=== PATIENT | male | born 1985 | race American Indian/Alaskan Native ===

== ENCOUNTER 2021-08-29 01:28 | Emergency (ER) | payer SELFPAY ==
[2021-08-29 01:35] VITALS: BP 136/95
[2021-08-29 02:23] LABS: Basophils # (Auto) 0.1 K/mm3 (0.0-0.1); Eosinophils # (Auto) 0.1 K/mm3 (0.0-0.4); Eosinophils % (Auto) 1.1 % (0.0-4.3); Hematocrit 48.6 % (35.5-45.6); Hemoglobin 16.1 gm/dl (11.8-15.2); Lymphocytes # (Auto) 1.8 K/mm3 (1.2-5.4); Mean Corpuscular HGB Conc 33 % (32-34); Mean Corpuscular Volume 94 fl (84-94); Monocytes # (Auto) 0.5 K/mm3 (0.0-0.8); Monocytes % (Auto) 11.3 % (0.0-7.3); Platelet Count 170 K/mm3 (140-440); Red Blood Count 5.19 M/mm3 (3.65-5.03); Red Cell Distribution Width 14.6 % (13.2-15.2)
[2021-08-29] MEDS ORDERED: MORPHINE 4 MG/1 ML INJ IV ONE ×2 (02:43→05:08)
[2021-08-29] MEDS ORDERED: SODIUM CHLORIDE 0.9% 1000 ML 1,000 ML IV ONE ×2 (02:43→05:08)
[2021-08-29] MEDS ORDERED: ONDANSETRON 4 MG/2 ML INJ IV ONE ×2 (02:43→05:08)
[2021-08-29] MEDS ORDERED: TAMSULOSIN 0.4 MG CAP PO ONE (02:43)
[2021-08-29 03:52] LABS: Alanine Aminotransferase 50 units/L (7-56); Albumin 4.1 g/dL (3.9-5); BUN/Creatinine Ratio 7; Blood Urea Nitrogen 8 mg/dL (9-20); Calcium 9.3 mg/dL (8.4-10.2); Hemolysis Index 50
[2021-08-29 04:40] LABS: Bilirubin,Urine NEG (Negative); Blood,Urine MOD (Negative); Color,Urine Red (Yellow); Mucus,Urine FEW /HPF; Urobilinogen,Urine < 2.0 mg/dL (<2.0)
[2021-08-29 04:41] LABS: RBC,Urine > 182.0 /HPF (0.0-6.0); WBC,Urine < 1.0 /HPF (0.0-6.0)
--- NOTE | 2021-08-29 05:09 | Cat Scan Report ---
CT ABDOMEN AND PELVIS WITHOUT CONTRAST INDICATION / CLINICAL INFORMATION: Left flank pain, hematuria. TECHNIQUE: Axial CT images were obtained through the abdomen and pelvis without IV contrast. All CT scans at this location are performed using CT dose reduction for ALARA by means of automated exposure control. COMPARISON: None available. FINDINGS: LOWER CHEST: No acute abnormality. LIVER: Hepatic steatosis with hepatomegaly. GALLBLADDER/BILIARY TREE: No significant abnormality PANCREAS: No significant abnormality SPLEEN: No significant abnormality ADRENALS: No significant abnormality KIDNEYS / URETER: No significant abnormality. No urolithiasis or hydronephrosis. URINARY BLADDER: No significant abnormality REPRODUCTIVE ORGANS: No significant abnormality STOMACH / BOWEL: Small bowel and colon demonstrate no evidence of mechanical obstruction or inflammat ion. A few scattered colonic diverticula are noted without evidence of diverticulitis. There is a 2.2 cm thick-walled fat density region along the transverse colon omentum (series 2 image 143), likely r eflecting localized omental infarct. Appendix is normal. LYMPH NODES: No significant adenopathy. VASCULATURE: No significant abnormality. OTHER: No free air, free fluid, or focal fluid collection is identified. SKELETAL SYSTEM: No acute osseous findings. IMPRESSION: 1. 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 2. Otherwise, no evidence of acute abnormality in the abdomen or pelvis. No urolithiasis or hydroneph rosis. 3. Other incidental findings as above. Signer Name: Van Merritt MD Signed: 08/29/2021 5:05 AM Workstation Name: [id number]
[2021-08-29] MEDS ORDERED: INSULIN REGULAR, HUMAN 100 UNITS/1 ML IV ONE (06:00)
--- NOTE | 2021-08-29 07:13 | Emergency Department Report ---
ED Abdominal Pain HPI - General Chief Complaint: Abdominal Pain Stated Complaint: LEFT SIDE FLANK PAIN Source: patient Mode of arrival: Ambulatory Limitations: No Limitations - History of Present Illness Initial Comments: Patient is a 36-year-old -[place] male with a history of morbid obesity, [id number] diabetes and chronic kidney stones who presents to the ED with acute onset persistent severe left flank pain that radiates to the left lower quadrant with nausea and vomiting and hematuria for the last 6 hours. Patient states that he is visiting [facility] for work from [place]. Patient states that the pain is similar to what he experienced whenever he had kidney stones. Patient denies fever, chills, dizziness, syncope, diarrhea, low back pain, chest pain or shortness of breath, testicular pain, dysuria or penile discharge. MD Complaint: abdominal pain, flank pain (Left flank pain, nausea and vomiting), other (Hematuria) -: Sudden, hour(s) (6) Location: LLQ, L flank Radiation: LLQ, L flank Migration to: LLQ, L flank Severity: severe Severity scale (0 -10): 8 Quality: stabbing, sharp Consistency: constant Improves With: nothing Worsens With: nothing Context: other (Possible kidney stone) Associated Symptoms: nausea, vomiting - Related Data Allergies Allergy/AdvReac Type Severity Reaction Status Date / Time ketorolac [From Toradol] Allergy Itching Verified 08/29/21 01:32 ED Review of Systems ROS: Stated complaint: LEFT SIDE FLANK PAIN Other details as noted in HPI Constitutional: denies: chills, fever Eyes: denies: eye pain, eye discharge, vision change ENT: denies: ear pain, throat pain Respiratory: denies: cough, shortness of breath, wheezing Cardiovascular: denies: chest pain, palpitations Endocrine: no symptoms reported Gastrointestinal: abdominal pain (Left flank pain), nausea, vomiting. denies: diarrhea Genitourinary: hematuria. denies: urgency, dysuria Musculoskeletal: denies: back pain, joint swelling, arthralgia Skin: denies: rash, lesions Neurological: denies: headache, weakness, paresthesias Psychiatric: denies: anxiety, depression Hematological/Lymphatic: denies: easy bleeding, easy bruising ED Past Medical Hx - Past Medical History Previous Medical History?: Yes Additional medical history: Kidney stones - Surgical History Past Surgical History?: Yes Additional Surgical History: Tonsillectomy ED Physical Exam - General Limitations: No Limitations General appearance: alert, in no apparent distress - Head Head exam: Present: atraumatic, normocephalic, normal inspection - Eye Eye exam: Present: normal appearance, PERRL, EOMI Pupils: Present: normal accommodation - ENT ENT exam: Present: normal exam, normal orophraynx, mucous membranes moist, TM's normal bilaterally, normal external ear exam - Neck Neck exam: Present: normal inspection, full ROM - Respiratory Respiratory exam: Present: normal lung sounds bilaterally. Absent: respiratory distress, wheezes, rales, rhonchi, stridor, chest wall tenderness, decreased breath sounds, prolonged expiratory - Cardiovascular Cardiovascular Exam: Present: regular rate, normal rhythm, normal heart sounds. Absent: systolic murmur, diastolic murmur, rubs, gallop - GI/Abdominal GI/Abdominal exam: Present: soft, tenderness (Palpable left flank and left lower quadrant tenderness), normal bowel sounds. Absent: guarding, rebound - Extremities Exam Extremities exam: Present: normal inspection, full ROM, normal capillary refill - Back Exam Back exam: Present: normal inspection, full ROM. Absent: tenderness, CVA tenderness (R), CVA tenderness (L), muscle spasm, paraspinal tenderness, liberty tebral tenderness - Neurological Exam Neurological exam: Present: alert, oriented X3, CN II-XII intact, normal gait, reflexes normal - Psychiatric Psychiatric exam: Present: normal affect, normal mood - Skin Skin exam: Present: warm, dry, intact, normal color. Absent: rash ED Course Vital Signs 08/29/21 01:32 Temperature 98.3 F Pulse Rate 98 H Respiratory 18 Rate Blood Pressure 136/95 [Right] O2 Sat by Pulse 98 Oximetry ED Medical Decision Making - Lab Data Result diagrams: 08/29/21 02:03 08/29/21 02:03 - Radiology Data [facility] [address] [place] [address] Cat Scan Report Signed Patient: JESS STOKES MR# : [id number] : 1985 Acct:[id number] Age/Sex: 36 / M ADM Date: 08/29/21 Loc: ED Attending Dr: Ordering Physician: JORGE L FRAZIER Date of Service: 08/29/21 Procedure(s): CT abdomen pelvis wo con Accession Number(s): [id number] cc: JORGE L FRAZIER CT ABDOMEN AND PELVIS WITHOUT CONTRAST INDICATION / CLINICAL INFORMATION: Left flank pain, hematuria. TECHNIQUE: Axial CT images were obtained through the abdomen and pelvis without IV contrast. All CT scans at this location are performed using CT dose reduction for ALARA by means of automated exposure control. COMPARISON: None available. FINDINGS: LOWER CHEST: No acute abnormality. LIVER: Hepatic steatosis with hepatomegaly. GALLBLADDER/BILIARY TREE: No significant abnormality PANCREAS: No significant abnormality SPLEEN: No significant abnormality ADRENALS: No significant abnormality KIDNEYS / URETER: No significant abnormality. No urolithiasis or hydronephrosis. URINARY BLADDER: No significant abnormality REPRODUCTIVE ORGANS: No significant abnormality STOMACH / BOWEL: Small bowel and colon demonstrate no evidence of mechanical obstruction or inflammation. A few scattered colonic diverticula are noted without evidence of diverticulitis. The re is a 2.2 cm thick-walled fat density region along the transverse colon omentum (series 2 image 143), likely reflecting localized omental infarct. Appendix is normal. LYMPH NODES: No significant adenopathy. VASCULATURE: No significant abnormality. OTHER: No free air, free fluid, or focal fluid collection is identified. SKELETAL SYSTEM: No acute osseous findings. IMPRESSION: 1. 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 2. Otherwise, no evidence of acute abnormality in the abdomen or pelvis. No urolithiasis or hydronephrosis. 3. Other incidental findings as above. Signer Name: Aaron Merritt MD Signed: 08/29/2021 5:05 AM Workstation Name: [id number] Transcribed By: ARISTEO Dictated By: AARON MERRITT MD Electronically Authenticated By: AARON MERRITT MD Signed Date/Time: 08/29/21504 DD/ 0 TD/TT: - Medical Decision Making This is a 36-year-old -[place] male with a history of morbid obesity, [id number]-[id number] diabetes and chronic kidney stones who presents to the ED with acute onset persistent severe left flank pain that radiates to the left lower quadrant with nausea and vomiting and hematuria for the last 6 hours. Patient states that he is visiting [facility] for work from [place]. Patient states that the pain is similar to what he experienced whenever he had kidney stones. In the ED, patient is alert and oriented x3 and is not in any distress but appears to be in pain. Patient was treated for pain in the ED. Patient was treated with normal saline 2 L IV bolus x1. Lab test results were reviewed and showed acute hyponatremia 129 mmol/L, also hyperglycemia of 463 mg/dL. Urinalysis showed gross hematuria. 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 Otherwise, no evidence of acute abnormality in the abdomen or pelvis. No urolithiasis or hydronephrosis. These findings were discussed with the ED attending physician Dr. Indy Sanches who advised that the findings of suspected small omental infarct is not clinically significant and relevant at this time. The patient had presented to the ED with left flank pain on arrival. Patient was also treated with insulin as well as 2 L of normal saline IV bolus. On reevaluation, patient's pain is well controlled medication. Patient has not had any nausea or vomiting after being treated with antiemetics. Patient however eloped from the ED prior to receiving his discharge paperwork and before he is [id number]-pzxz blood glucose could be rechecked. - Differential Diagnosis Kidney stone; diverticulitis; UTI; hyperglycemia; dehydration; Critical care attestation.: If time is entered above; I have spent that time in minutes in the direct care of this critically ill patient, excluding procedure time. 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
== END 2021-08-29 07:10 | disposition left against medical advice (07) ==
LOC: ED 01:28
DX: E87.1 Hypo-osmolality and hyponatremia (principal); E11.65 Type 2 diabetes mellitus with hyperglycemia; Z90.89 Acquired absence of other organs; Z79.899 Other long term (current) drug therapy
CPT/HCPCS: 36415; 74176; 80053; 81001; 85025; 96361; 96374; 96375; 96376; 99284; J2270; J2405; J7030; Q0162; Q9967; J1815